=== PATIENT | male | born 1990 | race Caucasian/White ===

== ENCOUNTER 2021-02-21 12:08 | Emergency (ER) | payer OTHER ==
[~2021-02-21] VITALS: Ht 182.9 cm; Wt 90.7 kg
[~2021-02-21 12:08] MED LIST: CEPH500 PO; CYCL10 PO; HYDACE5 PO; HYDHCL25 PO; Keflex500 MG PO; TRAM50 PO
[2021-02-21] MEDS ORDERED: Norco 5-325 Ta1 EACH PO (12:55)
[2021-02-21] MEDS ORDERED: PENVK500 PO (12:55)
== END 2021-02-21 13:14 | disposition home or self-care (01) ==
LOC: ER 12:08
DX: K04.7 Periapical abscess without sinus (principal); R73.09 Other abnormal glucose; F17.200 Nicotine dependence, unspecified, uncomplicated
CPT/HCPCS: 96372; 99282-25; A9270; J1885